=== PATIENT | male | born 1945 | race Caucasian/White ===

== ENCOUNTER 2016-08-11 17:43 | Emergency (ER) | payer MEDICARE, MEDICAID ==
[2016-08-11 17:43] VITALS: BMI 28.1
[2016-08-11] MEDS ORDERED: diaZEpam 10 mg/2 ml Inj IVP ONE (18:19)
[2016-08-11 18:21] VITALS: RESP 18; TEMP 98.4
--- NOTE | 2016-08-11 19:52 | ED PDOC ---
Arrival/HPI - General Historian: Patient - General Chief Complaint: Back Pain Time Seen by Provider: 08/11/16 18:04 - History of Present Illness Narrative History of Present Illness (Text): 08/11/16 19:49 70yo male with history of chronic back pain present with complaint of lower back pain that radiates to his left lower leg. He states pain is typical of his previous back pain. States he takes suboxone. the last time was two weeks ago. States he took Ibuprofen this morning without relieve. Pain is worse with movement. He denies trauma, urinary/fecal incontinence, saddle anesthesia, abdominal pain, UTI symptoms, any other complaint. (Katharina,Mary A) Past Medical History - Provider Review Nursing Documentation Reviewed: Yes - Infectious Disease Hx of Infectious Diseases: None - Tetanus Immunization Tetanus Immunization: Unknown - Cardiac Hx Cardiac Disorders: Yes Hx Hypertension: Yes - Pulmonary Hx Respiratory Disorders: Yes Hx Chronic Obstructive Pulmonary Disease (COPD): Yes (uses O2 at home) - Neurological Hx Neurological Disorder: No - HEENT Hx HEENT Disorder: No - Renal Hx Renal Disorder: Yes Hx Kidney Stones: Yes Other/Comment: R kidney nephrolithiasis - Endocrine/Metabolic Hx Endocrine Disorders: No - Hematological/Oncological Hx Blood Disorders: No - Integumentary Hx Dermatological Disorder: No - Musculoskeletal/Rheumatological Hx Musculoskeletal Disorders: Yes Hx Herniated Disk: Yes - Gastrointestinal Hx Gastrointestinal Disorders: No - Genitourinary/Gynecological Hx Genitourinary Disorders: No - Psychiatric Hx Psychophysiologic Disorder: No Hx Substance Use: No Other/Comment: trouble sleeping - Past Surgical History Past Surgical History: No Previous - Surgical History Hx Orthopedic Surgery: Yes (spinal fusion 2 surgeries lower back) - Anesthesia Hx Anesthesia: Yes Hx Anesthesia Reactions: No - Suicidal Assessment Feels Threatened In Home Enviroment: No Family/Social History - Physician Review Nursing Documentation Reviewed: Yes Family/Social History: Unknown Family HX Smoking Status: Light Smoker < 10 Cigarettes Daily Hx Alcohol Use: No Hx Substance Use: No Hx Substance Use Treatment: No Allergies/Home Meds Allergies/Adverse Reactions: Allergies Penicillins Allergy (Verified 04/17/16 18:00) ITCHING Home Medications: Home Meds Medication Instructions Recorded Confirmed Amitriptyline HCl 50 mg PO HS 07/29/15 07/29/15 Aspirin [Ecotrin] 325 mg PO DAILY 07/29/15 07/29/15 LORazepam [Ativan] 0.5 mg PO BID 07/29/15 07/29/15 Simvastatin [Zocor] 40 mg PO DIN 07/29/15 07/29/15 Review of Systems - Physician Review All systems were reviewed & negative as marked: Yes - Review of Systems Constitutional: Normal Eyes: Normal ENT: Normal Respiratory: Normal Cardiovascular: Normal Gastrointestinal: Normal Genitourinary Male: Normal Musculoskeletal: Back Pain Skin: Normal Neurological: Normal Endocrine: Normal Hemo/Lymphatic: Normal Psychiatric: Normal Physical Exam Vital Signs Reviewed: Yes Temperature: Afebrile Blood Pressure: Normal Pulse: Regular Respiratory Rate: Normal Appearance: Positive for: Well-Appearing, Non-Toxic, Comfortable Pain Distress: None Mental Status: Positive for: Alert and Oriented X 3 - Systems Exam Head: Present: Atraumatic, Normocephalic Pupils: Present: PERRL Extroacular Muscles: Present: EOMI Conjunctiva: Present: Normal Mouth: Present: Moist Mucous Membranes Neck: Present: Normal Range of Motion Respiratory/Chest: Present: Clear to Auscultation, Good Air Exchange. No: Respiratory Distress, Accessory Muscle Use Cardiovascular: Present: Regular Rate and Rhythm, Normal S1, S2. No: Murmurs Abdomen: Present: Normal Bowel Sounds. No: Tenderness, Distention, Peritoneal Signs Back: Present: Paraspinal Tenderness (Left paralumbar tenderness), Pain with Leg Raise (Left leg). No: Midline Tenderness Upper Extremity: Present: Normal Inspection. No: Cyanosis, Edema Lower Extremity: Present: Normal Inspection. No: Edema Neurological: Present: GCS=15, CN II-XII Intact, Speech Normal Skin: Present: Warm, Dry, Normal Color. No: Rashes Psychiatric: Present: Alert, Oriented x 3, Normal Insight, Normal Concentration Vital Signs Temp Pulse Resp BP Pulse Ox 08/11/16 21:16 91 H 18 151/82 H 97 08/11/16 17:43 98.4 F 98 H 18 152/84 H 96 Medical Decision Making ED Course and Treatment: I was available for consultation during PA evaluation. The chart was reviewed by me, and I agree with disposition. The documented history was done by the physician solar lab technician. The documented physical exam was done by the physician solar lab technician. The documented procedures were done by the physician solar lab technician. ( Sterling Hernandez) PT pain improved in ED with medication. He was ambulatory and have no focal neurological deficit. He was DC home with NSAID and muscle relaxer. He states that he have pain management and was referred to his pain management. TRT ED for any new or worsening symptoms. (Mary Posadas) - Medication Orders Current Medication Orders: Discontinued Medications Diazepam (Valium) 5 mg IVP ONCE ONE PRN Reason: Protocol Stop: 08/11/16 18:20 Last Admin: 08/11/16 18:49 Dose: 5 mg Ketorolac Tromethamine (Toradol) 30 mg IVP STAT STA Stop: 08/11/16 18:19 Last Admin: 08/11/16 18:49 Dose: 30 mg Disposition/Present on Arrival - Present on Arrival Any Indicators Present on Arrival: No History of DVT/PE: No History of Uncontrolled Diabetes: No Urinary Catheter: No History of Decub. Ulcer: No History Surgical Site Infection Following: None - Disposition Have Diagnosis and Disposition been Completed?: Yes Disposition Time: 19:55 Patient Plan: Discharge - Disposition Diagnosis: Back pain Disposition: HOME/ ROUTINE Condition: STABLE Discharge Instructions (ExitCare): Chronic Back Pain (ED) Additional Instructions: Follow up with your Doctor Return to ED for any new or worsening symptoms Prescriptions: Cyclobenzaprine [Cyclobenzaprine HCl] 10 mg PO DAILY #10 tab Naproxen [Naprosyn] 500 mg PO BID #20 tablet Referrals: Aime Nova MD [Primary Care Provider] - Follow up with primary
[2016-08-11 21:16] VITALS: BP 151/82; PULSE 91; O2SAT 97
== END 2016-08-11 20:13 | disposition home or self-care (01) ==
LOC: ED 17:43
DX: M54.5 Low back pain (principal)
CPT/HCPCS: 96374; 96375; 99282; J1885; J3360

== ENCOUNTER 2017-03-04 20:00 | Emergency (ER) | payer MEDICARE, MEDICAID ==
[2017-03-04 20:01] VITALS: BMI 28.1
[2017-03-04 20:30] VITALS: BP 133/82; PULSE 104; RESP 18; TEMP 98; O2SAT 96
--- NOTE | 2017-03-04 21:15 | ED PDOC ---
Arrival/HPI - General Chief Complaint: Cough, Cold, Congestion Time Seen by Provider: 03/04/17 21:08 Historian: Patient, Parent Past Medical History - Travel History If Yes, travel location?: [place] - Infectious Disease Hx of Infectious Diseases: None - Tetanus Immunization Tetanus Immunization: Unknown - Cardiac Hx Cardiac Disorders: Yes Hx Hypertension: Yes - Pulmonary Hx Respiratory Disorders: Yes Hx Chronic Obstructive Pulmonary Disease (COPD): Yes (uses O2 at home) - Neurological Hx Neurological Disorder: No - HEENT Hx HEENT Disorder: No - Renal Hx Renal Disorder: Yes Hx Kidney Stones: Yes Other/Comment: R kidney nephrolithiasis - Endocrine/Metabolic Hx Endocrine Disorders: No - Hematological/Oncological Hx Blood Disorders: No - Integumentary Hx Dermatological Disorder: No - Musculoskeletal/Rheumatological Hx Musculoskeletal Disorders: Yes Hx Herniated Disk: Yes - Gastrointestinal Hx Gastrointestinal Disorders: No - Genitourinary/Gynecological Hx Genitourinary Disorders: No - Psychiatric Hx Psychophysiologic Disorder: Yes Hx Substance Use: No Other/Comment: trouble sleeping - Past Surgical History Past Surgical History: No Previous - Surgical History Hx Orthopedic Surgery: Yes (spinal fusion 2 surgeries lower back) - Anesthesia Hx Anesthesia: Yes Hx Anesthesia Reactions: No - Suicidal Assessment Feels Threatened In Home Enviroment: No Family/Social History Smoking Status: Former Smoker Hx Alcohol Use: No Hx Substance Use: No Hx Substance Use Treatment: No Allergies/Home Meds Allergies/Adverse Reactions: Allergies Penicillins Allergy (Verified 03/04/17 20:24) ITCHING Home Medications: Home Meds Medication Instructions Recorded Confirmed Unobtainable 01/19/17 03/04/17 Physical Exam Vital Signs Temp Pulse Resp BP Pulse Ox 03/04/17 20:24 98.0 F 104 H 18 133/82 96 Disposition/Present on Arrival - Present on Arrival History of DVT/PE: No History of Uncontrolled Diabetes: No Urinary Catheter: No History of Decub. Ulcer: No History Surgical Site Infection Following: None - Disposition Referrals: Rosa Skinner MD [Primary Care Provider] - Follow up with primary
== END 2017-03-04 21:08 | disposition left against medical advice (07) ==
LOC: ED 20:00
DX: Z02.89 Encounter for other administrative examinations (principal); M54.9 Dorsalgia, unspecified

== ENCOUNTER 2018-07-05 10:03 | Emergency (ER) | payer MEDICARE, MEDICAID ==
[2018-07-05 10:04] VITALS: BMI 27.6
[2018-07-05 10:06] VITALS: BP 137/84; PULSE 114; RESP 18; TEMP 97.9; O2SAT 97
--- NOTE | 2018-07-05 10:10 | ED PDOC ---
Arrival/HPI - General Chief Complaint: Back Pain Time Seen by Provider: 07/05/18 10:05 Historian: Patient, EMS - History of Present Illness Narrative History of Present Illness (Text): 07/05/18 10:10 72 year old male, whose past medical history includes hypertension, who presents to the emergency department BIB EMS for lower back pain and leg weakness. 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 Upon attempting to transport, patient had no use of left leg. Patient reports symptoms began 3 hours ago. He also reports 2 back operations in the past. Patient endorses lower extremity weakness, but denies any fall or trauma. He also denies any abdominal pain, chest pain, shortness of breath, headache, fever, chills, cough, nausea, vomiting, diarrhea, or any other somatic complaints. 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 Past Medical History - Provider Review Nursing Documentation Reviewed: Yes - Infectious Disease Hx of Infectious Diseases: None - Tetanus Immunization Tetanus Immunization: Unknown - Cardiac Hx Cardiac Disorders: Yes Hx Hypertension: Yes - Pulmonary Hx Respiratory Disorders: Yes Hx Chronic Obstructive Pulmonary Disease (COPD): Yes (uses O2 at home) - Neurological Hx Neurological Disorder: No - HEENT Hx HEENT Disorder: No - Renal Hx Renal Disorder: Yes Hx Kidney Stones: Yes Other/Comment: R kidney nephrolithiasis - Endocrine/Metabolic Hx Endocrine Disorders: No - Hematological/Oncological Hx Blood Disorders: No - Integumentary Hx Dermatological Disorder: No - Musculoskeletal/Rheumatological Hx Musculoskeletal Disorders: Yes Hx Herniated Disk: Yes - Gastrointestinal Hx Gastrointestinal Disorders: No - Genitourinary/Gynecological Hx Genitourinary Disorders: No - Psychiatric Hx Psychophysiologic Disorder: Yes Hx Substance Use: No Other/Comment: trouble sleeping - Past Surgical History Past Surgical History: No Previous - Surgical History Hx Orthopedic Surgery: Yes (spinal fusion 2 surgeries lower back) - Anesthesia Hx Anesthesia: Yes Hx Anesthesia Reactions: No - Suicidal Assessment Feels Threatened In Home Enviroment: No Family/Social History - Physician Review Nursing Documentation Reviewed: Yes Family/Social History: Unknown Family HX Smoking Status: Former Smoker Hx Alcohol Use: No Hx Substance Use: No Hx Substance Use Treatment: No Allergies/Home Meds Allergies/Adverse Reactions: Allergies Penicillins Allergy (Verified 03/04/17 20:24) ITCHING Review of Systems - Physician Review All systems were reviewed & negative as marked: Yes - Review of Systems Constitutional: absent: Fevers Respiratory: absent: SOB, Cough Cardiovascular: absent: Chest Pain Gastrointestinal: absent: Abdominal Pain Musculoskeletal: Back Pain Physical Exam Vital Signs Temp Pulse Resp BP Pulse Ox 07/05/18 10:03 97.9 F 114 H 18 137/84 97 Temperature: Afebrile Blood Pressure: Normal Pulse: Tachycardic Respiratory Rate: Normal Appearance: Positive for: Well-Appearing, Non-Toxic, Uncomfortable Pain Distress: None Mental Status: Positive for: Alert and Oriented X 3 Finger Stick Blood Glucose: 130 - Systems Exam Head: Present: Atraumatic, Normocephalic Pupils: Present: PERRL Extroacular Muscles: Present: EOMI Conjunctiva: Present: Normal Mouth: Present: Moist Mucous Membranes Neck: Present: Normal Range of Motion Respiratory/Chest: Present: Clear to Auscultation, Good Air Exchange. No: Respiratory Distress, Accessory Muscle Use Cardiovascular: Present: Regular Rate and Rhythm, Normal S1, S2. No: Murmurs Abdomen: No: Tenderness, Distention, Peritoneal Signs Back: Present: Normal Inspection, Pain with Leg Raise, Other (+left lower paralumbar tenderness. ) Upper Extremity: Present: Normal Inspection. No: Cyanosis, Edema Lower Extremity: Present: Normal Inspection, Other ((+)left straight leg raise ). No: Edema Neurological: Present: GCS=15, Speech Normal Skin: Present: Warm, Dry, Normal Color. No: Rashes Psychiatric: Present: Alert, Oriented x 3, Normal Insight, Normal Concentration Medical Decision Making ED Course and Treatment: 07/05/18 10:08 Impression: 72 year old male presents to the emergency room complaining of back pain Differential Diagnosis included but are not limited to: Plan: -- Flexeril -- Toradol -- Reassess and disposition Prior Visits: Notes and results from previous visits were reviewed. Progress Notes: 07/05/18 18:12 h/o of chornic back pain neuro intact in er. no saddle anesthisa no bowle urinary complaints. ambulatory in er. seen numerous times in past. pain meds. pt ambulated out o [facility] - Scribe Statement The provider has reviewed the documentation as recorded by the José Miguelibso Gaitan All medical record entries made by the José Miguelibso were at my direction and personally dictated by me. I have reviewed the chart and agree that the record accurately reflects my personal performance of the history, physical exam, medical decision making, and the department course for this patient. I have also personally directed, reviewed, and agree with the discharge instructions and disposition. Disposition/Present on Arrival - Present on Arrival Any Indicators Present on Arrival: No History of DVT/PE: No History of Uncontrolled Diabetes: No Urinary Catheter: No History Surgical Site Infection Following: None - Disposition Have Diagnosis and Disposition been Completed?: Yes Diagnosis: Back pain Disposition: HOME/ ROUTINE Disposition Time: 10:00 Condition: FAIR Discharge Instructions (ExitCare): Low Back Pain in Adults Additional Instructions: please follow up with your doctor/clinic. return to any er with worsening symptoms or concersn. Prescriptions: Cyclobenzaprine [Cyclobenzaprine HCl] 10 mg PO DAILY PRN #10 tab PRN Reason: Muscle Spasm Lidocaine 5% [Lidoderm] 1 ea TD DAILY PRN #4 patch PRN Reason: Pain, Mild (1-3) Naproxen 500 mg PO BID PRN #14 tab PRN Reason: Pain, Mild (1-3) Referrals: Aime Nova MD [Primary Care Provider] - Follow up with primary Migue Juarez MD [Staff Provider] - Follow up with primary Forms: [facility] (Japanese)
== END 2018-07-05 11:16 | disposition home or self-care (01) ==
LOC: ED 10:03
DX: M54.5 Low back pain (principal); I10 Essential (primary) hypertension; J44.9 Chronic obstructive pulmonary disease, unspecified; Z99.81 Dependence on supplemental oxygen; Z87.891 Personal history of nicotine dependence
CPT/HCPCS: 96372; 99283; J1885